=== PATIENT | female | born 1975 | race Caucasian/White ===

== ENCOUNTER 2019-04-04 06:30 | Emergency (ER) | payer OTHER ==
[2019-04-04 06:50] VITALS: BP 144/99
--- NOTE | 2019-04-04 07:00 | PHYS DOC ---
Past History Past Medical History: No Pertinent History Past Surgical History: No Surgical History Alcohol Use: None Drug Use: None Adult General Chief Complaint Chief Complaint: HEADACHE HPI HPI 44-year-old female presents with headache. She's been having intermittent headaches over the last few weeks that she describes as migraines. She used to have difficulties with leg raise, but that got better about 5 years ago. She has had very little trouble since then. These headaches seem to start in the upper neck or arms. The head and radiating forwards. The pain as a throbbing sensation . This is similar to her previous migraines. She does have photophobia. The patient normally is able to sleep and it will get better. She was unable to sleep last night. She did try ibuprofen about 9 hours ago as well as 0.5 mg of Ativan and a muscle relaxer. None of these worked. The patient feels like she is had increased neck pain lately. She has not had this evaluated yet. She did recently have her eyes examined and got a new prescription. The headaches started prior to her prescription. Review of Systems Review of Systems Constitutional: Denies fever or chills [] Eyes: Denies change in visual acuity, redness, or eye pain [] HENT: Denies nasal congestion or sore throat [] Respiratory: Denies cough or shortness of breath [] Cardiovascular: No additional information not addressed in HPI [] GI: Denies abdominal pain, nausea, vomiting, bloody stools or diarrhea [] : Denies dysuria or hematuria [] Musculoskeletal: Denies back pain or joint pain [] Integument: Denies rash or skin lesions [] Neurologic: Occipital headache. Denies focal weakness or sensory changes [] Endocrine: Denies polyuria or polydipsia [] All other systems were reviewed and found to be within normal limits, except as documented in this note. Current Medications Current Medications Current Medications Medications (Trade) Dose Ordered Sig/Angelia Start Time Stop Time Status Last Admin Dose Admin Diphenhydramine HCl (Benadryl) 25 mg 1X ONCE 04/04/19 07:15 04/04/19 07:16 Ketorolac Tromethamine (Toradol 30mg Vial) 30 mg 1X ONCE 04/04/19 07:15 04/04/19 07:16 Metoclopramide HCl (Reglan Vial) 10 mg 1X ONCE 04/04/19 07:15 04/04/19 07:16 Sodium Chloride 1,000 ml @ 1,000 mls/hr 1X ONCE 04/04/19 07:15 04/04/19 08:14 Allergies Allergies Allergies Coded Allergies Type Severity Reaction Last Updated Verified No Known Drug Allergies 04/04/19 No Physical Exam Physical Exam Constitutional: Well developed, well nourished, no acute distress, non-toxic appearance. [] HENT: Normocephalic, atraumatic, bilateral external ears normal, oropharynx moist, no oral exudates, nose normal. [] Eyes: PERRLA, EOMI, conjunctiva normal, no discharge. [] Neck: Normal range of motion, paraspinal cervical muscle tenderness, supple, no stridor. [] Cardiovascular:Heart rate regular rhythm, no murmur [] Lungs & Thorax: Bilateral breath sounds clear to auscultation [] Abdomen: Bowel sounds normal, soft, no tenderness, no masses, no pulsatile masses. [] Skin: Warm, dry, no erythema, no rash. [] Back: No tenderness, no CVA tenderness. [] Extremities: No tenderness, no cyanosis, no clubbing, ROM intact, no edema. [] Neurologic: Alert and oriented X 3, normal motor function, normal sensory function, no focal deficits noted. [] Psychologic: Affect normal, judgement normal, mood normal. [] Current Patient Data Vital Signs Vital Signs Date Time Temp Pulse Resp B/P (MAP) Pulse Ox O2 Delivery O2 Flow Rate FiO2 04/04/19 06:50 98.2 91 18 100 Room Air EKG EKG [] Radiology/Procedures Radiology/Procedures [] Impressions: Indication: Neck pain TECHNIQUE: Multiple views of the cervical spine COMPARISON: None FINDINGS: The cervical spine demonstrates loss of normal cervical lordosis. This could be due to muscle spasm or position. Atlantoaxial joint interval is preserved. No compression deformity. Facet joints are within normal limits. Prevertebral soft tissues within normal limits. Visualized lung apices are clear. No significant evidence of degenerative disc disease or facet arthropathy. IMPRESSION: No acute radiographic findings. No evidence of significant degenerative disc disease. Electronically signed by: Karl Portillo DO (04/04/2019 7:42 AM) [facility] DICTATED AND SIGNED BY: KARL PORTILLO DO DATE: 04/04/19 0742 CC: SONNY HENRY DO; PRICE RUIZ ~ Course & Med Decision Making Course & Med Decision Making Pertinent Labs and Imaging studies reviewed. (See chart for details) The patient's cervical x-rays are unremarkable. For her headache at given her 1 L normal saline, 30 mg of Toradol, 25 mg of Benadryl, 10 mg Reglan. After period of rest, the patient is feeling better. She feels like she is ready to go home. She is stable for discharge. [] Dragon Disclaimer Dragon Disclaimer This electronic medical record was generated, in whole or in part, using a voice recognition dictation system. Departure Departure: Impression: Primary Impression: Migraine headache Disposition: HOME, SELF-CARE Condition: IMPROVED Referrals: PRICE RUIZ (PCP) Patient Instructions: Migraine Headache, [id number] Problem Qualifiers Primary Impression: Migraine headache Migraine type: without aura Status migrainosus presence: without status migrainosus Intractability: intractable Qualified Codes: G43.019 - Migraine without aura, intractable, without status migrainosus SONNY HENRY DO Apr 04, 2019 07:00
[2019-04-04] MEDS ORDERED: METOCLOPRAMIDE HCL 10 MG/2 ML VIAL. IV ONE (07:15)
[2019-04-04] MEDS ORDERED: KETOROLAC 30 MG/ML VIAL. IV ONE (07:15)
[2019-04-04] MEDS ORDERED: IV NORMAL SALINE 1,000ML 1,000 ML IV ONE (07:15)
[2019-04-04] MEDS ORDERED: diphenhydrAMINE 50 MG/ML VIAL IVP ONE (07:15)
[2019-04-04 07:18] LABS: BASO % 1 % (0-3); EOS # 0.1 x10^3/uL (0.0-0.7); EOS % 2 % (0-3); HEMATOCRIT 39.2 % (36.0-47.0); HEMOGLOBIN 13.4 g/dL (12.0-15.5); LYMPH # 2.7 x10^3/uL (1.0-4.8); LYMPH % 41 % (24-48); MEAN CORPUSCULAR HEMOGLOBIN 31 pg (25-35); MEAN CORPUSCULAR HGB CONC 34 g/dL (31-37); MEAN CORPUSCULAR VOLUME 90 fL (79-100); MONO # 0.6 x10^3/uL (0.0-1.1); MONO % 9 % (0-9); NEUT # 3.2 x10^3uL (1.8-7.7); NEUT % 48 % (31-73); PLATELET COUNT 224 x10^3/uL (140-400); RED BLOOD COUNT 4.34 x10^6/uL (3.50-5.40); WHITE BLOOD COUNT 6.6 x10^3/uL (4.0-11.0)
[2019-04-04 07:32] LABS: ALBUMIN 3.8 g/dL (3.4-5.0); ALBUMIN/GLOBULIN RATIO 1.2 (1.0-1.7); CALCIUM 9.2 mg/dL (8.5-10.1); CREATININE 0.7 mg/dL (0.6-1.0); GFR 91.3; TOTAL BILIRUBIN 0.5 mg/dL (0.2-1.0); TOTAL PROTEIN 7.1 g/dL (6.4-8.2)
--- NOTE | 2019-04-04 07:44 | RAD ---
Indication: Neck pain TECHNIQUE: Multiple views of the cervical spine COMPARISON: None FINDINGS: The cervical spine demonstrates loss of normal cervical lordosis. This could be due to muscle spasm or position. Atlantoaxial joint interval is preserved. No compression deformity. Facet joints are within normal limits. Prevertebral soft tissues within normal limits. Visualized lung apices are clear. No significant evidence of degenerative disc disease or facet arthropathy. IMPRESSION: No acute radiographic findings. No evidence of significant degenerative disc disease. Electronically signed by: Karl Jim DO (04/04/2019 7:42 AM) [facility]
== END 2019-04-04 09:32 | disposition home or self-care (01) ==
LOC: ER 06:30
DX: G43.019 Migraine without aura, intractable, without status migrainosus (principal); M54.2 Cervicalgia
CPT/HCPCS: 36415; 72040; 80053; 85025; 96374; 96375; 99285; J1200; J1885; J2765; 96361; J7030